=== PATIENT | male | born 2000 | race Caucasian/White ===

== ENCOUNTER 2019-05-05 10:19 | Emergency (ER) | payer BC, MEDICAID ==
[~2019-05-05] VITALS: Ht 185 cm; Wt 68.1 kg
--- NOTE | 2019-05-05 10:52 | ED GU-Male ---
General Chief Complaint: - Urinary Stated Complaint: TESTICLE PAIN Source: patient Exam Limitations: no limitations History of Present Illness Date Seen by Provider: May 05, 2019 Time Seen by Provider: 10:40 Initial Comments Reports 2 days ago he was working [place]. A friend to his was playing around and tab tab in the scrotum on the left testicle with a pair of pliers. He has had pain to the left testicle since. Denies significant swell ing. No dysuria. Patient and significant other noted that there was a swollen pain at the top of the testicle that there were concerned about. He is also concerned about twisting of the testicle. He did take ibuprofen this morning and that has helped. Pain is worse with moving about and better with rest. It has been going on for the last 2 days since the injury. Timing/Duration: changing over time, other (2 days ago) Severity/Quality: moderate, aching Location: scrotal Radiation: none Activities at Onset: physical activity Prior Genitourinary Problems: none Associated Symptoms: No dysuria, No fever/chills, No lower back pain, No nausea/vomiting, No urinary frequency Allergies and Home Medications Allergies Coded Allergies: No Known Drug Allergies (Unverified , 05/05/19) Home Medications No Active Prescriptions or Reported Meds Patient Home Medication List Home Medication List Reviewed: Yes Review of Systems Review of Systems Constitutional: no symptoms reported Respiratory: no symptoms reported Cardiovascular: no symptoms reported Genitourinary: see HPI; denies dysuria; pain Musculoskeletal: no symptoms reported Skin: no symptoms reported Past Lmhzorf-Gzwoqc-Anaigy Hx Past Med/Social Hx: Reviewed Nursing Past Med/Soc Hx Patient Social History Alcohol Use: Denies Use Recreational Drug Use: No Smoking Status: Never a Smoker Recent Foreign Travel: No Contact w/Someone Who Travel: No Past Medical History Surgeries: Yes Appendectomy Respiratory: No Cardiac: No Neurological: No Genitourinary: No Gastrointestinal: No Musculoskeletal: No Endocrine: No HEENT: No Cancer: No Family Medical History Reviewed Nursing Family Hx No Pertinent Family Hx Physical Exam Vital Signs Vital Signs - First Documented 05/05/19 10:30 Temp 36.0 Pulse 76 Resp 16 B/P (MAP) 119/71 (87) Pulse Ox 99 Capillary Refill : Height, Weight, BMI Height: '" Weight: lbs. oz. kg; BMI Method: General Appearance: WD/WN, mild distress Cardiovascular: regular rate, rhythm, no murmur Respiratory: lungs clear, normal breath sounds Gastrointestinal: non tender, soft Male: no hernia; No erythema, No inguinal tenderness; testicular tenderness (left), other (no significant testicular swelling noted. Retains cremasteric reflex. No obvious hernia.) Back: normal inspection, no CVA tenderness, no vertebral tenderness Neurologic/Psychiatric: alert, oriented x 3 Skin: normal color, warm/dry Progress/Results/Core Measures Suspected Sepsis SIRS Temperature: Pulse: Respiratory Rate: Blood Pressure / Mean: Results/Orders My Orders Orders - LINDA SKY MD Us Scrotum (Testicle) [id number] (05/05/19 10:46) Vital Signs/I&O 05/05/19 10:30 Temp 36.0 Pulse 76 Resp 16 B/P (MAP) 119/71 (87) Pulse Ox 99 Capillary Refill : Progress Note : Progress Note Seen and evaluated. Ultrasound scrotum ordered. Monitor patient. 1145: U ltrasound complete and shows no torsion. Discharged home with return precautions. Patient verbalize understanding instructions and agreement with plan. Diagnostic Imaging Diagonstic Imaging: Ultrasound Plain Films/CT/US/NM/MRI: other Comments [facility], [place] NAME: NAZARIO ARREDONDO [facility] REC#: [id number] PT STATUS: REG ER : 2000 PHYSICIAN: LINDA SKY MD ADMIT DATE: 05/05/19/ER Draft Date of Exam:05/05/19 US SCROTUM (Testicle) [id number] PROCEDURE: US Scrotum. TECHNIQUE: Multiple real-time grayscale images were obtained over the scrotum in various projections bilaterally. INDICATION: Testicular injury. The right testicle measures 4.6 x 2.1 x 2.9 cm and the left testicle measures 4.6 x 2.6 x 3.3 cm. Right testicle demonstrates homogeneous echotexture and is without evidence of discrete mass. There is some mild generalized parenchymal heterogeneity involving the left testicle although no discrete mass or intratesticular hematoma is seen. There is blood flow to the left testicle. Bilateral epididymides are unremarkable. There are small hydroceles bilaterally. IMPRESSION: 1. No evidence of testicular mass or vascular compromise. There is some mild parenchymal heterogeneity involving the left testicle, perhaps from recent injury, however, no discrete testicular laceration or hematoma is identified. There are small bilateral hydroceles. Dictated on workstation # [id number] Dict: 05/05/19 1124 Trans: 05/05/19 1128 [facility] [phone] Interpreted by: CHANTEL VINSON MD Electronically signed by: Departure Impression Primary Impression: Testicular injury Qualified Codes: S39.94XA - Unspecified injury of external genitals, initial encounter Disposition: HOME, SELF-CARE Condition: Stable Departure-Patient Inst. Decision time for Depature: 11:47 Referrals: [facility] (PCP) Primary Care Physician Patient Instructions: Testicular Injury Add. Discharge Instructions: All discharge instructions reviewed with patient and/or family. Voiced un derstanding. You may take Tylenol/acetaminophen 1000 mg every 8 hours as needed for pain. You may take ibuprofen 600 mg every 8 hours as needed for pain. Follow up with her doctor for recheck in a few days as needed. You need to rest over the next 2 days and then you may resume work. You may use ice packs to areas of concern for 10-20 minutes per hour as needed for pain or swelling. Return for worse pain, swelling, difficulty with going to the bathroom or other concerns as needed. Scripts No Active Prescriptions or Reported Meds Work/School Note: Work Release Form Date Seen in the Emergency Department: May 05, 2019 Return to Work: May 07, 2019 Restrictions: No Restrictions LINDA SKY MD May 05, 2019 10:52
--- NOTE | 2019-05-05 11:29 | Diagnostic Imaging Report ---
PROCEDURE: US Scrotum. TECHNIQUE: Multiple real-time grayscale images were obtained over the scrotum in various projections bilaterally. INDICATION: Testicular injury. The right testicle measures 4.6 x 2.1 x 2.9 cm and the left testicle measures 4.6 x 2.6 x 3.3 cm. Right testicle demonstrates homogeneous echotexture and is without evidence of discrete mass. There is some mild generalized parenchymal heterogeneity involving the left testicle although no discrete mass or intratesticular hematoma is seen. There is blood flow to the left testicle. Bilateral epididymides are unremarkable. There are small hydroceles bilaterally. IMPRESSION: 1. No evidence of testicular mass or vascular compromise. There is some mild parenchymal heterogeneity involving the left testicle, perhaps from recent injury, however, no discrete testicular laceration or hematoma is identified. There are small bilateral hydroceles. Dictated by: Dictated on workstation # [id number]
[2019-05-05 11:55] VITALS: BP 123/60
== END 2019-05-05 11:55 | disposition home or self-care (01) ==
LOC: EDUNIT# 10:19 → ER 10:21
DX: S39.94XA Unspecified injury of external genitals, initial encounter (principal); Z90.49 Acquired absence of other specified parts of digestive tract; W22.8XXA Striking against or struck by other objects, initial encounter; Y92.79 Other farm location as the place of occurrence of the external cause
CPT/HCPCS: 76870